=== PATIENT | female | born 1990 | race Caucasian/White ===

== ENCOUNTER 2016-11-04 23:46 | Emergency (ER) | payer OTHER ==
[~2016-11-04] VITALS: Ht 165.1 cm; Wt 55.8 kg
[2016-11-04] MEDS ORDERED: ALDACTONE50 MG PO (23:56)
[2016-11-05 01:09] VITALS: BP 110/62
== END 2016-11-05 01:20 | disposition home or self-care (01) ==
LOC: ER 23:46
DX: T26.81XA Corrosions of other specified parts of right eye and adnexa, initial encounter (principal); S05.01XA Injury of conjunctiva and corneal abrasion without foreign body, right eye, initial encounter; T65.6X1A Toxic effect of paints and dyes, not elsewhere classified, accidental (unintentional), initial encounter; Y92.89 Other specified places as the place of occurrence of the external cause; Y93.89 Activity, other specified; Y99.8 Other external cause status